=== PATIENT | female | born 1990 | race Caucasian/White ===

== ENCOUNTER 2016-03-18 12:06 | Emergency (ER) | payer MEDICAID ==
[~2016-03-18] VITALS: Ht 162.6 cm; Wt 79.0 kg
[~2016-03-18 12:06] MED LIST: PREN1CAP20 PO; ZOLO50TA PO
[2016-03-18 12:12] VITALS: BP 115/70; PULSE 117; RESP 17; TEMP 98; O2SAT 98
[2016-03-18] MEDS ORDERED: SODIUM CHLOR 0.9% 1000 ML INJ 1,000 ML IV ONE (12:19)
[2016-03-18 12:23] VITALS: O2SAT 98
[2016-03-18] MEDS ORDERED: SODIUM CHLORIDE 0.9% FLUSH 5 ML FLUSH IVF PRN (12:30)
[2016-03-18 12:37] LABS: AUTOMATED NEUTROPHIL # 5.9 TH/MM3 (1.8-7.7); BASOPHIL # 0.1 TH/MM3 (0-0.2); BASOPHIL % 0.7 % (0.0-2.0); EOSINOPHIL # 0.3 TH/MM3 (0-0.4); EOSINOPHIL % 3.9 % (0.0-4.0); HEMATOCRIT 36.7 % (35.0-46.0); HEMO FLAGS DIFF FINAL; MEAN CELL VOLUME 85.7 FL (80.0-100.0); MEAN CORPUSCULAR HEMOGLOBIN 29.3 PG (27.0-34.0); MEAN CORPUSCULAR HGB CONC 34.2 % (32.0-36.0); MONO % 6.3 % (0.0-8.0); NEUT % 66.1 % (16.0-70.0); PLATELET COUNT 352 TH/MM3 (150-450); RED BLOOD COUNT 4.28 MIL/MM3 (4.00-5.30); RED CELL DISTRIBUTION WIDTH 12.8 % (11.6-17.2); WHITE BLOOD COUNT 8.9 TH/MM3 (4.0-11.0)
[2016-03-18 12:44] LABS: CHLORIDE 106 MEQ/L (98-107); POTASSIUM 3.9 MEQ/L (3.5-5.1); SODIUM (NA) 139 MEQ/L (136-145)
[2016-03-18 12:48] LABS: ANION GAP 12 MEQ/L (5-15); BICARBONATE 21.3 MEQ/L (21.0-32.0); BLOOD UREA NITROGEN 14 MG/DL (7-18)
[2016-03-18 12:51] LABS: ALT (GPT) 35 U/L (10-53); AST (GOT) 22 U/L (15-37); GLOMERULAR FILTRATION RATE 79 ML/MIN (>89)
[2016-03-18 12:53] LABS: TOTAL BILIRUBIN ADULT 0.2 MG/DL (0.2-1.0)
[2016-03-18 12:54] LABS: ALKALINE PHOSPHATASE 83 U/L (45-117); CREATINE KINASE 132 U/L (26-192)
[2016-03-18 13:39] LABS: AMPHETAMINE, URINE NEG (NEG); BARBITURATES, URINE NEG (NEG)
[2016-03-18 13:40] LABS: COCAINE, URINE NEG (NEG)
--- NOTE | 2016-03-18 13:42 | RADHPO ---
EXAM DATE/TIME: 03/18/2016 13:32 [facility] COMPARISON: CT BRAIN W/O CONTRAST, January 25, 2011, 18:45 reports only. INDICATIONS : Seizure activity. Occipital head pain. RADIATION DOSE: 59.39 CTDIvol (mGy) MEDICAL HISTORY : None SURGICAL HISTORY : None. ENCOUNTER: Initial ACUITY: 1 day PAIN SCALE: 2/10 LOCATION: occipital TECHNIQUE: Multiple contiguous axial images were obtained of the head. Using automated exposure control and adj ustment of the mA and/or kV according to patient size, radiation dose was kept as low as reasonably a chievable to obtain optimal diagnostic quality images. FINDINGS: CEREBRUM: The ventricles are normal for age. No evidence of midline shift, mass lesion, hemorrhage or acute in farction. No extra-axial fluid collections are seen. POSTERIOR FOSSA: The cerebellum and brainstem are intact. The 4th ventricle is midline. The cerebellopontine angle i s unremarkable. EXTRACRANIAL: The visualized portion of the orbits is intact. SKULL: The calvaria is intact. No evidence of skull fracture. CONCLUSION: Normal examination. Panfilo Godfrey MD on March 18, 2016 at 13:40 Board Certified Radiologist. This report was verified electronically.
--- NOTE | 2016-03-18 13:58 | PD ---
HPI Chief Complaint: Seizure Time Seen by Provider: 12:20 Travel History International Travel<30 days: No Contact w/Intl Traveler<30days: No Traveled to known affect area: No History of Present Illness HPI Patient is a 25-year-old female who comes in after seizure at work today. She says she had a seizure once when she was 17, but has never had any further issues. She does not take any medications for it. She says she took a tramadol earlier today for headache, because she gets migraines. This was a typical headache for her. Currently she has no symptoms. She denies any headache. She has not had any fever or chills. Per EMS she was witnessed to pass out and have general tonic-clonic movements at work. EMS states that she was caught by her coworkers and did not fall and hit her head. PFSH Past Medical History ADD: Yes (as a kid) ADHD: Yes (as a kid) Asthma: Yes Blood Disorders: No Depression: Yes Cardiovascular Problems: No Diminished Hearing: No Gastrointestinal Disorders: Yes (IBS) Musculoskeletal: Yes (CHRONIC BACK PAIN) Immunizations Current: Yes Tetanus Vaccination: < 5 Years Influenza Vaccination: Yes PNEUMOCCOCAL Vaccine (Year): 2009 ?: Not LMP: 03/15/16 : 3 Para: 3 Miscarriage: 0 : 0 Past Surgical History Gynecologic Surgery: Yes (EPISIOTMY) Oral Surgery: Yes (WISDOM TOOTH ) Other Surgery: No Social History Alcohol Use: Yes (rarely) Tobacco Use: Yes (1/2PPD) Substance Use: No Allergies-Medications (Allergen,Severity, Reaction): Coded Allergies: No Known Allergies (Unverified , 03/18/16) Reported Meds & Prescriptions Reported Meds & Active Scripts Active Reported Zoloft (Sertraline HCl) 50 Mg Tab 50 Mg PO DAILY Prenate Mini 18-0.6-0.4-350 mg ( W/O Vit A W/ Fe Carbo) 1 Cap Cap PO DAILY Review of Systems Except as stated in HPI: all other systems reviewed are Neg General / Constitutional: No: Fever, Chills Eyes: No: Diploplia, Blurred Vision HENT: No: Lightheadedness Cardiovascular: No: Chest Pain or Discomfort Respiratory: No: Shortness of Breath Gastrointestinal: No: Nausea, Vomiting Genitourinary: No: Urgency, Frequency Musculoskeletal: No: Edema, Pain Skin: No Rash, No Change in Pigmentation Neurologic: Positive: Seizures Physical Exam Narrative GENERAL: Awake and alert in no acute distress. SKIN: Warm and dry. HEAD: Atraumatic. Normocephalic. EYES: Pupils equal and round. No scleral icterus. Extraocular movements intact. ENT: Mucous membranes pink and moist. No evidence of tongue biting. NECK: Trachea midline. No JVD. CARDIOVASCULAR: Regular rate and rhythm. No murmur appreciated. RESPIRATORY: No accessory muscle use. Clear to auscultation. Breath sounds equal bilaterally. GASTROINTESTINAL: Abdomen soft, non-tender, nondistended. MUSCULOSKELETAL: No obvious deformities. No clubbing. No cyanosis. No edema. NEUROLOGICAL: Awake and alert. No obvious cranial nerve deficits. Motor grossly within normal limits. Normal speech. PSYCHIATRIC: Appropriate mood and affect; insight and judgment normal. Data Data Last Documented VS Vital Signs Date Time Temp Pulse Resp B/P Pulse Ox O2 Delivery O2 Flow Rate FiO2 03/18/16 12:23 98 Room Air 03/18/16 12:12 98.0 117 17 115/70 Orders Complete Blood Count With Diff (03/18/16 12:19) Drug Screen, Random Urine (03/18/16 12:19) Ct Brain W/O Iv Contrast(Rout) (03/18/16 ) Blood Glucose (03/18/16 12:19) Ecg Monitoring (03/18/16 12:19) Iv Access Insert/Monitor (03/18/16 12:19) Oximetry (03/18/16 12:19) Sodium Chlor 0.9% 1000 Ml Inj (Ns 1000 M (03/18/16 12:19) Sodium Chloride 0.9% Flush (Ns Flush) (03/18/16 12:30) Ed Urine Pregnancytest Poc (03/18/16 12:19) Troponin I (03/18/16 12:20) Creatine Kinase (Cpk) (03/18/16 12:20) Alcohol (Ethanol) (03/18/16 12:30) Comprehensive Metabolic Panel (03/18/16 12:30) Labs Laboratory Tests Test 03/18/16 03/18/16 12:30 13:20 White Blood Count 8.9 TH/MM3 Red Blood Count 4.28 MIL/MM3 Hemoglobin 12.6 GM/DL Hematocrit 36.7 % Mean Corpuscular Volume 85.7 FL Mean Corpuscular Hemoglobin 29.3 PG Mean Corpuscular Hemoglobin 34.2 % Concent Red Cell Distribution Width 12.8 % Platelet Count 352 TH/MM3 Mean Platelet Volume 7.8 FL Neutrophils (%) (Auto) 66.1 % Lymphocytes (%) (Auto) 23.0 % Monocytes (%) (Auto) 6.3 % Eosinophils (%) (Auto) 3.9 % Basophils (%) (Auto) 0.7 % Neutrophils # (Auto) 5.9 TH/MM3 Lymphocytes # (Auto) 2.0 TH/MM3 Monocytes # (Auto) 0.6 TH/MM3 Eosinophils # (Auto) 0.3 TH/MM3 Basophils # (Auto) 0.1 TH/MM3 CBC Comment DIFF FINAL Differential Comment Sodium Level 139 MEQ/L Potassium Level 3.9 MEQ/L Chloride Level 106 MEQ/L Carbon Dioxide Level 21.3 MEQ/L Anion Gap 12 MEQ/L Blood Urea Nitrogen 14 MG/DL Creatinine 0.87 MG/DL Estimat Glomerular Filtration 79 ML/MIN Rate Random Glucose 76 MG/DL Calcium Level 8.7 MG/DL Total Bilirubin 0.2 MG/DL Aspartate Amino Transf 22 U/L (AST/SGOT) Alanine Aminotransferase 35 U/L (ALT/SGPT) Alkaline Phosphatase 83 U/L Total Creatine Kinase 132 U/L Troponin I LESS THAN 0.02 NG/ML Total Protein 7.9 GM/DL Albumin 3.8 GM/DL Ethyl Alcohol Level LESS THAN 3 MG/DL Urine Opiates Screen NEG Urine Barbiturates Screen NEG Urine Amphetamines Screen NEG Urine Benzodiazepines Screen POS Urine Cocaine Screen NEG Urine Cannabinoids Screen NEG MDM Medical Decision Making Medical Screen Exam Complete: Yes Emergency Medical Condition: Yes Differential Diagnosis Seizure versus syncope versus dehydration versus electrolyte abnormality Narrative Course Patient is a 25-year-old female who comes in after reported witnessed seizure at work. Currently she has no complaints, neurologic exam is all within normal limits. Patient does say she took a tramadol earlier today for a headache, which she does not normally do. This is likely the cause of her seizure. IV established, labs sent. CT of the head performed shows no acute abnormalities. Labs are within normal limits. Patient advised to avoid tramadol in the future. Advised follow-up with neurology. Given IV fluids, observed in the ED without any further seizure activity. Patient is comfortable with discharge at this time. Advised to return to the ED as needed for any worsening symptoms. Diagnosis Primary Impression: Seizure Referrals: Eitan Roach MD call for appointment Patient Instructions: General Instructions, Recurrent Seizures in Adults (DC) Additional Instructions: Follow up with neurology. You should not drive until you are seizure free for 6 months. Return to the ED as needed for any worsening symptoms. Avoid taking Tramadol in the future. Disposition: 01 DISCHARGE HOME Condition: Stable Shelly Raya MD Mar 18, 2016 13:58
[2016-03-18 14:27] VITALS: BP 111/55
[2016-03-28] MEDS ORDERED: SPRI28TA PO (13:49)
== END 2016-03-18 14:34 | disposition home or self-care (01) ==
LOC: PHED 12:06
DX: R56.9 Unspecified convulsions (principal); F17.200 Nicotine dependence, unspecified, uncomplicated; Z86.59 Personal history of other mental and behavioral disorders; Z87.09 Personal history of other diseases of the respiratory system; Z87.19 Personal history of other diseases of the digestive system; Z87.39 Personal history of other diseases of the musculoskeletal system and connective tissue
CPT/HCPCS: 70450; 80053; 80307; 80320; 82550; 84484; 84703; 85025; 96360; 96361; 99285; J7030

== ENCOUNTER 2016-04-12 12:06 | Emergency (ER) | payer MEDICAID ==
[~2016-04-12] VITALS: Ht 162.6 cm; Wt 82.0 kg
[~2016-04-12 12:06] MED LIST changes: +SPRI28TA PO
[2016-04-12 12:13] VITALS: BP 152/91; PULSE 96; RESP 17; TEMP 97.8
[2016-04-12] MEDS ORDERED: TRAM50TA PO (12:14)
[2016-04-12 12:42] LABS: AUTOMATED NEUTROPHIL # 3.9 TH/MM3 (1.8-7.7); BASOPHIL % 0.6 % (0.0-2.0); EOSINOPHIL # 0.2 TH/MM3 (0-0.4); EOSINOPHIL % 2.3 % (0.0-4.0); HEMATOCRIT 35.3 % (35.0-46.0); HEMO FLAGS DIFF FINAL; LYMPH % 32.7 % (9.0-44.0); LYMPHOCYTE # 2.2 TH/MM3 (1.0-4.8); MEAN CELL VOLUME 87.7 FL (80.0-100.0); MEAN CORPUSCULAR HEMOGLOBIN 28.9 PG (27.0-34.0); MEAN CORPUSCULAR HGB CONC 32.9 % (32.0-36.0); MONO % 6.5 % (0.0-8.0); NEUT % 57.9 % (16.0-70.0); PLATELET COUNT 224 TH/MM3 (150-450); RED BLOOD COUNT 4.03 MIL/MM3 (4.00-5.30); RED CELL DISTRIBUTION WIDTH 13.5 % (11.6-17.2); WHITE BLOOD COUNT 6.7 TH/MM3 (4.0-11.0)
[2016-04-12] MEDS ORDERED: ONDANSETRON HCL 4 MG/2 ML VIAL IV PUSH ONE (12:45)
[2016-04-12] MEDS ORDERED: MORPHINE SULFATE 4 MG/ML INJ IV PUSH ONE (12:45)
--- NOTE | 2016-04-12 12:47 | PD ---
HPI Chief Complaint: Seizure Time Seen by Provider: 12:41 Travel History International Travel<30 days: No Contact w/Intl Traveler<30days: No Traveled to known affect area: No History of Present Illness HPI 26-year-old female that presents to the ED for the ambulance for evaluation of seizure. Patient came by ambulance for evaluation of this. Per patient she had a full tonic clonic seizure where she lost consciousness and fell and had her head on the back of the head that lasted less than a couple of minutes. This happened at work. Patient states that today she had a headache and she took tramadol for the headache which she usually doesn't take for and later on she developed a headache. Patient actually was seen here on February for the same with the same history. At the time per medical record from Dr. Raya she was told not to take tramadol anymore secondary to the increased likelihood of seizures. At this time patient's complaint is of neck pain and back pain the head. She appears to be alert and oriented 4 now. Per patient this is her regular seizure. She has a history of seizures in the past last one being at age 17. Per patient she takes no medications because she hasn't really had many seizures prolonged time except for this year which she's had 2. She denies any history of IV drug abuse. She denies any fevers chills or sweats. She has no allergies to medication. The patient her headache and pain is severe as 8 out of 10. Nothing seems to make it better or worse. PFSH Past Medical History ADD: Yes (as a kid) ADHD: Yes (as a kid) Asthma: Yes Blood Disorders: No Depression: Yes Cardiovascular Problems: No Diminished Hearing: No Gastrointestinal Disorders: Yes (IBS) Headaches: Yes (MIGRAINE) Musculoskeletal: Yes (CHRONIC BACK PAIN) Immunizations Current: Yes Seizures: Yes Tetanus Vaccination: < 5 Years PNEUMOCCOCAL Vaccine (Year): 2009 ?: Not LMP: 04/12/16 : 3 Para: 3 Miscarriage: 0 : 0 Past Surgical History Surgical History: No Previous Surgery Gynecologic Surgery: Yes (EPISIOTMY) Oral Surgery: Yes (WISDOM TOOTH ) Other Surgery: No Social History Alcohol Use: Yes (rarely) Tobacco Use: Yes (1/2PPD) Substance Use: No Allergies-Medications (Allergen,Severity, Reaction): Coded Allergies: No Known Allergies (Unverified , 2/24/17) Reported Meds & Prescriptions Reported Meds & Active Scripts Active Lortab (Hydrocodone-Acetaminophen) 5-325 Mg Tab 1 Tab PO Q6H PRN Keppra (Levetiracetam) 500 Mg Tab 500 Mg PO BID Reported Tramadol (Tramadol HCl) 50 Mg Tab 50 Mg PO Q4H PRN Review of Systems General / Constitutional: No: Fever, Chills, Weight Gain, Weight Loss, Other Eyes: No: Diploplia, Blurred Vision, Photophobia, Drainage, Redness, Foreign Body Sensation, Pain, Tearing, Blind Spots, Visual changes, Blindness, Other HENT: Positive: Headaches, No: Vertigo, Lightheadedness, Sore Throat, Rhinitis , Rhinorrhea, Congestion, Nosebleed, Neck Stiffness, Neck Pain, Masses, Gingival Bleeding, Dental Difficulties, Ear Discharge, Earache, Other Cardiovascular: No: Chest Pain or Discomfort, Palpitations, Irregular Rhythm, Tachycardia, Diaphoresis, Syncope, Dyspnea on exertion, Varicosities, Edema, Cyanosis, Varicosities, Phlebitis, Claudication, Other Respiratory: No: Cough, Shortness of Breath, Wheezing, Sneezing, Orthopnea, Hemoptysis, Stridor, Night Sweats, Pleuritic Pain, Other Gastrointestinal: No: Nausea, Vomiting, Diarrhea, Abdominal Pain, Hematemesis, Hematochezia, Constipation, Changes in Bowel Habits, Indigestion, Dysphagia, Loss of Appetite, Other Genitourinary: No: Urgency, Frequency, Dysuria, Nocturia, Hematuria, Decreased Urinary Output, Oliguria, Hesitancy, Dribbling, Incontinence, Pelvic Pain, Flank Pain, Dyspareunia, Discharge, Dysmenorrhea, Menorrhagia, Metorrhagia, Vaginal Bleeding, Other Musculoskeletal: Positive: Pain, No: Myalgias, Arthralgias, Limited ROM, Weakness, Cramping, Edema, Atrophy, Other Skin: Positive Lesions (hematoma), No Rash, No Itching, No Dryness, No Lumps, No Hives, No Change in Pigmentation, No Change in nails, No Alopecia, No Breast Lumps, No Breast Tenderness, No Breast Swelling, No Other Neurologic: Positive: Weakness, Headache, Seizures, No: Dizziness, Syncope, Focal Abnormalities, Coordination Problem, Tremor, Ataxia, Change in Mentation, Slurred Speech, Paresthesia, Incontinence, Sensory Disturbance, Other Psychiatric: No: Anxiety, Depression, Suicidal Ideations, Disorder of Thought, Mood Disorder, Substance Abuse, Homicidal Ideation, Other Endocrine: No: Heat Intolerance, Cold Intolerance, Polyuria, Polydipsia, Other Hematologic/Lymphatic: No: Easy Bruising, Lymph Node Enlargement, Other Physical Exam Narrative GENERAL: SKIN: Warm and dry. HEAD: Atraumatic. Normocephalic. Patient has a hematoma of 2 cm in diameter on the left occipital head. EYES: Pupils equal and round 4 mm reactive to light and accommodation.. No scleral icterus. No injection or drainage. ENT: No nasal bleeding or discharge. Mucous membranes pink and moist. Tongue is midline. Uvula deviation. Patient does have some blood from injuries to the gum. NECK: Trachea midline. No JVD. CARDIOVASCULAR: Regular rate and rhythm. No murmurs, S3, S4. RESPIRATORY: No accessory muscle use. Clear to auscultation. Breath sounds equal bilaterally. GASTROINTESTINAL: Abdomen soft, non-tender, nondistended. Hepatic and splenic margins not palpable. MUSCULOSKELETAL: Extremities without clubbing, cyanosis, or edema. No obvious deformities. Full range of motion of the upper and lower extremities bilaterally with 2+ pulses bilaterally. Patient has reproducible thoracic and cervical spine tenderness to palpation. Patient was seen with cervical collar and backboard in place. No lumbar spine tenderness to palpation. Full range of motion of the lower extremities. NEUROLOGICAL: Awake and alert. No obvious cranial nerve deficits. Motor grossly within normal limits. Five out of 5 muscle strength in the arms and legs. Normal speech. PSYCHIATRIC: Appropriate mood and affect; insight and judgment normal. Data Data Last Documented VS Vital Signs Date Time Temp Pulse Resp B/P Pulse Ox O2 Delivery O2 Flow Rate FiO2 04/12/16 13:03 17 04/12/16 12:20 96 98 Room Air 04/12/16 12:13 97.8 152/91 Orders Complete Blood Count With Diff (04/12/16 12:24) Basic Metabolic Panel (Bmp) (04/12/16 12:24) Prothrombin Time / Inr (Pt) (04/12/16 12:24) Act Partial Throm Time (Ptt) (04/12/16 12:24) Urinalysis - C+S If Indicated (04/12/16 12:24) Magnesium (Mg) (04/12/16 12:24) Thyroid Stimulating Hormone (04/12/16 12:24) Ct Brain W/O Iv Contrast(Rout) (04/12/16 12:24) Iv Access Insert/Monitor (04/12/16 12:24) Ecg Monitoring (04/12/16 12:24) Oximetry (04/12/16 12:24) Ed Urine Pregnancytest Poc (04/12/16 12:24) Drug Screen, Random Urine (04/12/16 12:24) Alcohol (Ethanol) (04/12/16 12:24) Ct Cerv Spine W/O Contrast (04/12/16 ) Morphine Inj (Morphine Inj) (04/12/16 12:45) Ondansetron Inj (Zofran Inj) (04/12/16 12:45) Ed Urine Pregnancytest Poc (04/12/16 12:51) Spine, Thoracic-Ap/Lat/Sw(3vw) (04/12/16 ) Ketorolac Inj (Toradol Inj) (04/12/16 14:30) Acetamin-Hydrocod 325-5 Mg (Arimo 5-325 (04/12/16 14:30) Labs Laboratory Tests Test 04/12/16 04/12/16 12:30 12:40 White Blood Count 6.7 TH/MM3 Red Blood Count 4.03 MIL/MM3 Hemoglobin 11.6 GM/DL Hematocrit 35.3 % Mean Corpuscular Volume 87.7 FL Mean Corpuscular Hemoglobin 28.9 PG Mean Corpuscular Hemoglobin 32.9 % Concent Red Cell Distribution Width 13.5 % Platelet Count 224 TH/MM3 Mean Platelet Volume 9.1 FL Neutrophils (%) (Auto) 57.9 % Lymphocytes (%) (Auto) 32.7 % Monocytes (%) (Auto) 6.5 % Eosinophils (%) (Auto) 2.3 % Basophils (%) (Auto) 0.6 % Neutrophils # (Auto) 3.9 TH/MM3 Lymphocytes # (Auto) 2.2 TH/MM3 Monocytes # (Auto) 0.4 TH/MM3 Eosinophils # (Auto) 0.2 TH/MM3 Basophils # (Auto) 0.0 TH/MM3 CBC Comment DIFF FINAL Differential Comment Prothrombin Time 10.4 SEC Prothromb Time International 0.9 RATIO Ratio Activated Partial 22.2 SEC Thromboplast Time Sodium Level 138 MEQ/L Potassium Level 4.0 MEQ/L Chloride Level 103 MEQ/L Carbon Dioxide Level 23.6 MEQ/L Anion Gap 11 MEQ/L Blood Urea Nitrogen 15 MG/DL Creatinine 0.81 MG/DL Estimat Glomerular Filtration 85 ML/MIN Rate Random Glucose 80 MG/DL Calcium Level 9.2 MG/DL Magnesium Level 2.3 MG/DL Thyroid Stimulating Hormone 1.760 uIU/ML 3rd Gen Ethyl Alcohol Level 3 MG/DL Urine Color YELLOW Urine Turbidity CLEAR Urine pH 5.5 Urine Specific Sheldon 1.030 Urine Protein 30 mg/dL Urine Glucose (UA) NEG mg/dL Urine Ketones NEG mg/dL Urine Occult Blood NEG Urine Nitrite NEG Urine Bilirubin NEG Urine Urobilinogen LESS THAN 2.0 MG/DL Urine Leukocyte Esterase TRACE Urine RBC 3 /hpf Urine WBC 2 /hpf Urine Squamous Epithelial 1 /hpf Cells Urine Hyaline Casts 4 /lpf Urine Granular Casts 20 /lpf Urine Mucus MOD /lpf Microscopic Urinalysis Comment CULT NOT INDICATED Urine Opiates Screen POS Urine Barbiturates Screen NEG Urine Amphetamines Screen NEG Urine Benzodiazepines Screen POS Urine Cocaine Screen NEG Urine Cannabinoids Screen NEG MDM Medical Decision Making Medical Screen Exam Complete: Yes Emergency Medical Condition: Yes Medical Record Reviewed: Yes Interpretation(s) CBC & BMP Diagram 04/12/16 12:30 Coags WNL tox screen positive for benzos and opiates. Last Impressions Head CT 04/12/16 1224 Signed Impressions: Service Date/Time: Tuesday, April 12, 2016 13:37 - CONCLUSION: Soft tissue swelling, negative for fracture. Intracranial contents are unremarkable. Jason Faustin MD FACR Thoracic Spine X-Ray 04/12/16 0000 Signed Impressions: Service Date/Time: Tuesday, April 12, 2016 13:17 - CONCLUSION: Mild curvature to the right. Otherwise unremarkable study. Quique Brink MD Cervical Spine CT 04/12/16 0000 Signed Impressions: Service Date/Time: Tuesday, April 12, 2016 13:37 - CONCLUSION: Negative for acute traumatic event. Jason Faustin MD FACR Differential Diagnosis Seizure versus head injury versus syncope versus medication side effect Narrative Course 26-year-old female that presents to the ED for evaluation of seizure. Patient was properly examined and was found to have signs and symptoms consistent with seizure. Patient was seen here just a month ago with similar history when she took a tramadol medication and she developed a seizure soon after. I consulate again that she cannot take this medication anymore as he will continue to give her seizures secondary to her seizure history. This medication is contraindicated with her history. At this time I will do imaging and labs secondary to her injury to her head right sign of internal bleeding as well as other causes of her seizures. Patient was given IV pain medications for pain relief. Labs and imaging showed no sign of acute disease other than tox screen positive for opiates and benzos. Case was discussed in my attending who recommends speaking with neurologist. I spoke with Dr. Crane who recommends starting patient on Keppra 500 mg twice a day and follow-up in the office. Patient was told this and agrees with plan. Patient was given position for Lortab. Patient was given note for work. Told to apply ice or warm compresses to the areas of pain. Follow with PCP. See ED if worsening symptoms.1 Diagnosis Primary Impression: Seizure Additional Impression: Head injury Qualified Code: S09.90XA - Head injury, initial encounter Referrals: Paz Crane MD Patient Instructions: General Instructions, Narcotic given in the ED Additional Instructions: Take medications as prescribed. Follow-up with neurologist. See ED for any worsening symptoms. Do not drink or drive while taking pain medication. Apply ice or heat as needed for pain Med/Other Pt SpecificInfo: Prescription(s) given, Wound Care Scripts Hydrocodone-Acetaminophen (Lortab)5-325 Mg Tab1 Tab PO Q6H PRN (PAIN) #14 TAB Prov:Sher Cardona MD 04/12/16 Levetiracetam (Keppra)500 Mg Qly080 Mg PO BID #60 TAB Ref 0 Prov:Sher Cardona MD 04/12/16 Disposition: 01 DISCHARGE HOME Condition: Stable Agusto Mendenhall Apr 12, 2016 12:46
[2016-04-12 12:50] LABS: APTT (PATIENT) 22.2 SEC (24.3-30.1); INTERNATIONAL NORMALIZED RATIO 0.9 RATIO; PROTHROMBIN TIME - PATIENT 10.4 SEC (9.8-11.6)
[2016-04-12 12:56] LABS: AMPHETAMINE, URINE NEG (NEG); BARBITURATES, URINE NEG (NEG); COCAINE, URINE NEG (NEG)
[2016-04-12 12:57] LABS: BLOOD, URINE NEG (NEG); COMMENT (UR) CULT NOT INDICATED; CULTURE IF INDICATED CULT NOT INDICATED; GLUCOSE,URINE NEG (NEG); GRANULAR CAST, URINE 20 /lpf; HYALINE CAST, URINE 4 /lpf (RARE); KETONE, URINE NEG (NEG); MUCUS URINE MOD /lpf (OCC); NITRITE,URINE NEG (NEG); PH, URINE 5.5 (5.0-8.5); SQUAMOUS EPITHELIAL CELL URINE 1 /hpf (0-5); URINE COLOR YELLOW (YELLW/STRAW)
[2016-04-12 13:03] VITALS: RESP 17
[2016-04-12 13:04] LABS: BICARBONATE 23.6 MEQ/L (21.0-32.0); MAGNESIUM 2.3 MG/DL (1.5-2.5)
--- NOTE | 2016-04-12 13:21 | RADRPT ---
EXAM DATE/TIME: 04/12/2016 13:17 [facility] COMPARISON: No previous studies available for comparison. INDICATIONS : Back pain after seizure. MEDICAL HISTORY : None. SURGICAL HISTORY : None. ENCOUNTER: Initial ACUITY: 1 day PAIN SCORE: 4/10 LOCATION: middle back FINDINGS: There is normal alignment of the thoracic vertebral bodies. Vertebral body height is maintained. No evidence of fracture or subluxation. Pedicles are intact at all levels. The paravertebral reflecti ons are not thickened. Mild curvature of the thoracic spine to the right. CONCLUSION: Mild curvature to the right. Otherwise unremarkable study. Quique Brink MD on April 12, 2016 at 13:19 Board Certified Radiologist. This report was verified electronically.
--- NOTE | 2016-04-12 13:44 | RADRPT ---
EXAM DATE/TIME: 04/12/2016 13:37 [facility] COMPARISON: CT BRAIN W/O CONTRAST, March 18, 2016, 13:32. INDICATIONS : Seizure, hit back of head. RADIATION DOSE: 36.26 CTDIvol (mGy) MEDICAL HISTORY : Seizures. SURGICAL HISTORY : None. ENCOUNTER: Initial ACUITY: 1 day PAIN SCALE: 4/10 LOCATION: cranial TECHNIQUE: Multiple contiguous axial images were obtained of the head. Using automated exposure control and adj ustment of the mA and/or kV according to patient size, radiation dose was kept as low as reasonably a chievable to obtain optimal diagnostic quality images. FINDINGS: CEREBRUM: The ventricles are normal for age. No evidence of midline shift, mass lesion, hemorrhage or acute in farction. No extra-axial fluid collections are seen. POSTERIOR FOSSA: The cerebellum and brainstem are intact. The 4th ventricle is midline. The cerebellopontine angle i s unremarkable. EXTRACRANIAL: The visualized portion of the orbits is intact. SKULL: The calvaria is intact. No evidence of skull fracture. Soft tissue swelling over the right frontal region. CONCLUSION: Soft tissue swelling, negative for fracture. Intracranial contents are unremarkable. Jason Faustin MD FACR on April 12, 2016 at 13:41 Board Certified Radiologist. This report was verified electronically.
--- NOTE | 2016-04-12 14:01 | RADRPT ---
EXAM DATE/TIME: 04/12/2016 13:37 [facility] COMPARISON: No previous studies available for comparison. INDICATIONS : Seizure, fall neck pain. RADIATION DOSE: 19.88 CTDIvol (mGy) MEDICAL HISTORY : Seizures. SURGICAL HISTORY : None. ENCOUNTER: Initial ACUITY: 1 day PAIN SCALE: 5/10 LOCATION: neck TECHNIQUE: Volumetric scanning of the cervical spine was performed. Multiplanar reconstructions i n the sagittal, coronal and oblique axial planes were performed. Using automated exposure control a nd adjustment of the mA and/or kV according to patient size, radiation dose was kept as low as reason ably achievable to obtain optimal diagnostic quality images. FINDINGS: VERTEBRAE: Normal vertebral body height. ALIGNMENT: No evidence of subluxation. C2-C3: The bony spinal canal is normal in size. No evidence of disc bulge or herniation. The neura l foramina are bilaterally patent. C3-C4: The bony spinal canal is normal in size. No evidence of disc bulge or herniation. The neura l foramina are bilaterally patent. C4-C5: The bony spinal canal is normal in size. No evidence of disc bulge or herniation. The neura l foramina are bilaterally patent. C5-C6: The bony spinal canal is normal in size. No evidence of disc bulge or herniation. The neura l foramina are bilaterally patent. C6-C7: The bony spinal canal is normal in size. No evidence of disc bulge or herniation. The neura l foramina are bilaterally patent. C7-T1: The bony spinal canal is normal in size. No evidence of disc bulge or herniation. The neura l foramina are bilaterally patent. CONCLUSION: Negative for acute traumatic event. Jason Faustin MD FACR on April 12, 2016 at 13:59 Board Certified Radiologist. This report was verified electronically.
[2016-04-12] MEDS ORDERED: ACETAMINOPHEN/HYDROcodone 325 MG/5 MG TAB PO ONE (14:30)
[2016-04-12] MEDS ORDERED: KETOROLAC TROMETHAMINE 30 MG/ML (IVP) VIAL IV PUSH ONE (14:30)
[2016-04-12] MEDS ORDERED: LEVE500 PO (14:35)
[2016-04-12] MEDS ORDERED: HYDR-3533 PO (14:36)
[2016-04-12 15:03] VITALS: BP 121/77
== END 2016-04-12 15:05 | disposition home or self-care (01) ==
LOC: NEPE 12:06
DX: R40.4 Transient alteration of awareness (principal); S09.90XA Unspecified injury of head, initial encounter; F17.210 Nicotine dependence, cigarettes, uncomplicated; R56.9 Unspecified convulsions; W22.8XXA Striking against or struck by other objects, initial encounter; W18.30XA Fall on same level, unspecified, initial encounter; Y93.9 Activity, unspecified; Y92.89 Other specified places as the place of occurrence of the external cause; Y99.9 Unspecified external cause status
CPT/HCPCS: 70450; 72072; 72125; 80048; 80307; 80320; 81001; 83735; 84443; 84703; 85025; 85610; 85730; 96374; 96375; 99284; J1885; J2270; J2405

== ENCOUNTER 2016-06-24 14:49 | Emergency (ER) | payer MEDICAID ==
[~2016-06-24 14:49] MED LIST changes: +HYDR-3533 PO; +LEVE500 PO; -PREN1CAP20 PO; -SPRI28TA PO; +TRAM50TA PO; -ZOLO50TA PO
--- NOTE | 2016-06-24 14:55 | PD ---
HPI Chief Complaint: altered mental status Time Seen by Provider: 14:54 Travel History International Travel<30 days: No Contact w/Intl Traveler<30days: No Traveled to known affect area: No History of Present Illness HPI 26-year-old female came to the emergency room with history of headache and altered mental status. Her boyfriend is here with her who had called 911. She says that patient is coming off Suboxone and yesterday she hit her head. Since then she's been acting really bizarre. Patient says that she's been seeing things. She told her boyfriend that yesterday her father walked her home although her father has been for a month. Currently she looks very anxious and disheveled. She is almost ran out of the room before I went to see her. Currently she looks anxious. She says she wants to wean herself off Suboxone. PFSH Past Medical History Narrative Medical List of her past medical, surgical, social and family history is reviewed from the nursing note. ADD: Yes (as a kid) ADHD: Yes (as a kid) Asthma: Yes Blood Disorders: No Depression: Yes Cardiovascular Problems: No Diminished Hearing: No Gastrointestinal Disorders: Yes (IBS) Headaches: Yes (MIGRAINE) Musculoskeletal: Yes (CHRONIC BACK PAIN) Immunizations Current: Yes Seizures: Yes PNEUMOCCOCAL Vaccine (Year): 2009 : 3 Para: 3 Miscarriage: 0 : 0 Past Surgical History Gynecologic Surgery: Yes (EPISIOTMY) Oral Surgery: Yes (WISDOM TOOTH ) Other Surgery: No Social History Alcohol Use: Yes (rarely) Tobacco Use: Yes (1/2PPD) Substance Use: No Allergies-Medications (Allergen,Severity, Reaction): Coded Allergies: No Known Allergies (Unverified , 04/12/16) Comments No known drug allergies. Reported Meds & Prescriptions Reported Meds & Active Scripts Active Lortab (Hydrocodone-Acetaminophen) 5-325 Mg Tab 1 Tab PO Q6H PRN Keppra (Levetiracetam) 500 Mg Tab 500 Mg PO BID Reported Tramadol (Tramadol HCl) 50 Mg Tab 50 Mg PO Q4H PRN Narrative Medication List of her home medications reviewed from the nursing note. Review of Systems Except as stated in HPI: all other systems reviewed are Neg Physical Exam Narrative GENERAL: Awake, alert, very anxious, disheveled SKIN: Focused skin assessment warm/dry. Disheveled, poor skin hygiene HEAD: Atraumatic. Normocephalic. EYES: Pupils equal and round. No scleral icterus. No injection or drainage. ENT: No nasal bleeding or discharge. Mucous membranes pink and moist. NECK: Trachea midline. No JVD. CARDIOVASCULAR: Regular rate and rhythm. No murmur appreciated. RESPIRATORY: No accessory muscle use. Clear to auscultation. Breath sounds equal bilaterally. GASTROINTESTINAL: Abdomen soft, non-tender, nondistended. Hepatic and splenic margins not palpable. MUSCULOSKELETAL: No obvious deformities. No clubbing. No cyanosis. No edema. NEUROLOGICAL: Awake and alert. No obvious cranial nerve deficits. Motor grossly within normal limits. Normal speech. PSYCHIATRIC: Appropriate mood and affect; insight and judgment normal. Data Data Last Documented VS Vital Signs Date Time Temp Pulse Resp B/P Pulse Ox O2 Delivery O2 Flow Rate FiO2 06/24/16 15:20 117 18 143/75 98 Room Air 06/24/16 15:00 98.9 Orders Clonidine (Catapres) (06/24/16 15:30) Ct Brain W/O Iv Contrast(Rout) (06/24/16 ) [facility] Medical Decision Making Medical Screen Exam Complete: Yes Emergency Medical Condition: Yes Medical Record Reviewed: Yes Interpretation(s) Twelve-lead EKG was reviewed by me. Normal sinus rhythm, normal axis, nonspecific ST-T wave changes. Heart rate of 77 bpm. Differential Diagnosis Substance abuse, opiate withdrawal symptoms Narrative Course 4:15 PM patient was given by mouth clonidine. Head CT is within normal limits. I will discharge her home. Procedures EKG Prior to Arrival: No Diagnosis Primary Impression: Opiate withdrawal Additional Impression: Anxiety Referrals: Primary Care Physician 2 days Additional Instructions: Please return to the ER if the condition worsens or any other new concerns. Otherwise follow up with her primary care in couple days. Med/Other Pt SpecificInfo: No Change to Meds Disposition: 01 DISCHARGE HOME Condition: Stable Oz Marks MD June 24, 2016 14:55
[2016-06-24 15:00] VITALS: BP 121/58; PULSE 88; RESP 18; TEMP 98.9; O2SAT 97
[2016-06-24 15:20] VITALS: BP 143/75; PULSE 117; RESP 18; O2SAT 98
[2016-06-24] MEDS ORDERED: cloNIDine HCL 0.1 MG TAB PO ONE (15:30)
--- NOTE | 2016-06-24 16:08 | RADRPT ---
EXAM DATE/TIME: 06/24/2016 15:38 [facility] COMPARISON: CT BRAIN W/O CONTRAST, April 12, 2016, 13:37. INDICATIONS : Syncopal episode,visual halucination. RADIATION DOSE: 56.38 CTDIvol (mGy) MEDICAL HISTORY : Seizures. Irritable bowel syndrome. SURGICAL HISTORY : Episiotomy ENCOUNTER: Initial ACUITY: 1 day PAIN SCALE: 0/10 LOCATION: cranial TECHNIQUE: Multiple contiguous axial images were obtained of the head. Using automated exposure control and adj ustment of the mA and/or kV according to patient size, radiation dose was kept as low as reasonably a chievable to obtain optimal diagnostic quality images. FINDINGS: CEREBRUM: The ventricles are normal for age. No evidence of midline shift, mass lesion, hemorrhage or acute in farction. No extra-axial fluid collections are seen. POSTERIOR FOSSA: The cerebellum and brainstem are intact. The 4th ventricle is midline. The cerebellopontine angle i s unremarkable. EXTRACRANIAL: The visualized portion of the orbits is intact. SKULL: The calvaria is intact. No evidence of skull fracture. CONCLUSION: Normal examination. Ritchie Dudley MD on June 24, 2016 at 16:05 Board Certified Radiologist. This report was verified electronically.
== END 2016-06-24 16:23 | disposition home or self-care (01) ==
LOC: NEPD 14:49
DX: F11.23 Opioid dependence with withdrawal (principal); F41.9 Anxiety disorder, unspecified; R44.1 Visual hallucinations
CPT/HCPCS: 70450